=== PATIENT | female | born 1985 | race Caucasian/White ===

== ENCOUNTER 2020-10-30 16:37 | Outpatient (CLI) | payer BC | END 2020-10-30 16:38 | disposition home or self-care (01) | LOC: COV 16:37 | PROVIDERS: ATTEND Family Medicine | DX: U07.1 COVID-19 (principal) ==

== ENCOUNTER 2021-05-09 08:00 | Outpatient (CLI) | payer BC ==
[2021-05-10 12:44] LABS: BILIRUBIN,URINE NEGATIVE (NEGATIVE); GLUCOSE, URINE (UA) NEGATIVE (NEGATIVE); KETONES,URINE (UA) NEGATIVE (NEGATIVE); LEUKOCYTE ESTERASE, URINE NEGATIVE (NEGATIVE); NITRITE,URINE NEGATIVE (NEGATIVE); OCCULT BLOOD,URINE NEGATIVE (NEGATIVE); PH,URINE 6.5 PH (5.0-7.5); PROTEIN,URINE NEGATIVE (NEGATIVE); UROBILINOGEN,URINE 0.2 (NORMAL) E.U./dL (NORMAL)
[2021-05-10 13:05] LABS: CLARITY,URINE CLEAR (CLEAR); RBC,URINE None Seen /HPF (0-5); WBC,URINE 0-3 /HPF (0-5)
[2021-05-10 13:06] LABS: BACTERIA,URINE None Seen /HPF (None Seen); SQUAMOUS EPITHELIAL CELL,UR RARE Squamous (<= Few)
== END 2021-05-09 23:59 | disposition home or self-care (01) ==
LOC: LAB 08:00
PROVIDERS: ATTEND Obstetrics & Gynecology
DX: Z32.01 Encounter for pregnancy test, result positive (principal)
CPT/HCPCS: 81001; 87086

== ENCOUNTER 2021-05-22 14:31 | Outpatient (CLI) | payer BC ==
--- NOTE | 2021-05-22 17:45 | Ultrasound Report ---
PROCEDURE: OB First Trimester w/TV INDICATIONS: POSITIVE TEST OUTSIDE/PRIOR DATING DATA: Last menstrual period (LMP): 04/03/2021. LMP-based estimated date of delivery (SURAJ): 01/08/2022. First dating scan (date and location): [facility] on 05/22/2021. Estimated date of delivery (SURAJ) from first dating scan: 01/04/2022. The below data below was generated using the sonographically generated SURAJ of 01/04/2022 TECHNIQUE: Real-time scanning was performed of the fetus and maternal pelvic organs, with image documentation. Endovaginal scanning was also performed to better visualize the fetus and maternal ovaries. COMPARISON: None FINDINGS: Embryo: Single living intrauterine gestation with estimated sonographic gestational age of approxima tely 7 weeks and 4 days based off crown-rump length measurement of 1.32 cm. Normal yolk sac is visual ized. No perigestational hemorrhage. Heart rate: 152 bpm Measurement variability in dating: +/- 4 weeks by LMP, +/- 7 days by mean sac diameter (use before 6 weeks gestation if crown-rump length not able to be measured), +/- 5 days by crown-rump length (6-12 weeks gestation). Maternal organs: Ovaries demonstrate presence of a left ovarian cyst measuring 4.6 x 3.4 x 3.6 cm. T here is a right corpus luteal cyst measuring 2.0 x 1.6 x 1.9 cm. Incidental note of a uterine fibroid measuring 1.1 x 1.0 x 1.4 cm. IMPRESSION: Single living intrauterine gestation with estimated sonographic gestational age of approximately 7 we eks and 4 days based off crown-rump length measurement. Estimated date of delivery is approximately . Recommend routine second trimester anatomic screening survey. Reviewed by: Fernandez Gaytan MD on 05/22/2021 5:44 PM PDT Approved by: Fernandez Gaytan MD on 05/22/2021 5:44 PM PDT Station ID: [id number]
== END 2021-05-22 14:32 | disposition home or self-care (01) ==
LOC: DI 14:31
PROVIDERS: ATTEND Obstetrics & Gynecology
DX: Z32.01 Encounter for pregnancy test, result positive (principal)

== ENCOUNTER 2021-06-04 12:41 | Outpatient (CLI) | payer BC ==
[2021-06-04 12:58] LABS: BASOPHILS % (AUTO) 0.3 %; EOSINOPHILS # (AUTO) 0.1 10^3/uL (0.0-0.7); HCT - HEMATOCRIT 38.8 % (37.0-47.0); HGB - HEMOGLOBIN 13.1 g/dL (12.0-16.0); LYMPHOCYTES # (AUTO) 2.4 10^3/uL (1.5-3.5); LYMPHOCYTES % (AUTO) 22.4 %; MEAN CORPUSCULAR HEMOGLOBIN 30.3 pg (27.0-31.0); MEAN CORPUSCULAR HGB CONC 33.8 g/dL (32.0-36.0); MEAN CORPUSCULAR VOLUME 89.6 fL (81.0-99.0); MEAN PLATELET VOLUME 9.2 fL (7.9-10.8); MONOCYTES # (AUTO) 0.4 10^3/uL (0.0-1.0); MONOCYTES % (AUTO) 4.2 %; NEUTROPHILS # (AUTO) 7.5 10^3/uL (1.5-6.6); NEUTROPHILS % (AUTO) 71.7 %; PLT - PLATELET COUNT 265 10^3/uL (130-450); RED BLOOD COUNT 4.33 10^6/uL (4.20-5.40); RED CELL DISTRIBUTION WIDTH 12.7 % (12.0-15.0); WHITE BLOOD COUNT 10.5 x10^3/uL (4.8-10.8)
[2021-06-05 09:58] LABS: HEPATITIS B SURFACE ANTIGEN NON-REACTIVE (NON-REACTIVE)
[2021-06-05 10:00] LABS: HEPATITIS C ANTIBODY NON-REACTIVE (NON-REACTIVE)
[2021-06-05 13:31] LABS: HIV AG/AB 4TH GEN NON-REACTIVE (NON-REACTIVE)
== END 2021-06-04 12:42 | disposition home or self-care (01) ==
LOC: LAB 12:41
PROVIDERS: ATTEND Obstetrics & Gynecology
DX: Z36.89 Encounter for other specified antenatal screening (principal)
CPT/HCPCS: 36415; 85025; 86592; 86762; 86787; 86803; 86850; 86900; 86901; 87340; 87389

== ENCOUNTER 2021-08-24 15:21 | Outpatient (CLI) | payer BC ==
--- NOTE | 2021-08-24 21:09 | Ultrasound Report ---
PROCEDURE: OB Detailed Eval INDICATIONS: SUPERVISION OF NORMAL OUTSIDE/PRIOR DATING DATA: Last menstrual period (LMP): 03/06/2021. LMP-based estimated date of delivery (SURAJ): 01/08/2022. First dating scan (date and location): 05/22/2021. Estimated date of delivery (SURAJ) from first dating scan: 01/04/2022. The below data below was generated using the study generated SURAJ of 01/04/2022 TECHNIQUE: Real-time scanning was performed of the fetus, with image documentation and biometric measurements. COMPARISON: 05/22/2021. FINDINGS: General: A single living intrauterine gestation is present. Presentation: Variable Placenta: Placental position is posterior, without previa. Amniotic fluid index: 15.7 cm, normal for gestational age. heart rate: 145 beats per minute. Maternal cervical canal: 4.7 cm long and is closed; normal length is 2.5 cm or more. biometrics: Biparietal diameter: 5.1 cm, 21 weeks, 3 days Head circumference: 19.17 cm, 21 weeks, 3 days Abdominal circumference: 17.19 cm, 22 weeks, 1 day Femur length: 3.65 cm, 21 weeks, 4 days Estimated gestational age from initial scan: 21 weeks, 0 day Composite gestational age from present scan: 21 weeks, 3 days Estimated weight and percentile: 454.6 g, 86.4% Measurement variability in biometric dating: +/- 10 days from 12-20 weeks gestation, +/- 2 weeks from 20-30 weeks gestation, +/- 3 weeks at 30 weeks gestation or later. Anatomic survey: Neuro: Ventricles are normal at less than 10 mm. Cisterna magna is normal at 3-11 mm. Cerebellum i s normal in size and morphology. Nuchal skin fold: Normal at less than 6 mm between 14 and 20 weeks gestational age. Face: Nose and lips, facial profile are normal. Spine: No evidence for spina bifida. Heart: 4-chambered heart is present, with normal ventricular outflow tracts. Diaphragm: Diaphragm is intact. Stomach: Left-sided stomach is present. Kidneys: No hydronephrosis. Normal is less than 5 mm in 2nd trimester, less than 7 mm in 3rd trimester. Cord: 3 vessel cord has orthotopic insertion. Bladder: Normal in size. Extremities: All 4 extremities are visualized. 1.5 x 1.2 x 1.6 cm simple cyst is seen in left ovary. IMPRESSION: 1. Single live intrauterine with fetus in variable presentation. heart rate is 145 bp m. Normal amount of amniotic fluid. Normal growth. Estimated weight is at 86.4%. 2. Normal anatomic survey. Reviewed by: Dionicio Mckeon MD on 08/24/2021 9:08 PM PST Approved by: Dionicio Mckeon MD on 08/24/2021 9:08 PM PST Station ID: [id number]
== END 2021-08-24 15:22 | disposition home or self-care (01) ==
LOC: DI 15:21
PROVIDERS: ATTEND Obstetrics & Gynecology
DX: Z34.92 Encounter for supervision of normal pregnancy, unspecified, second trimester (principal)

== ENCOUNTER 2021-12-14 08:00 | Outpatient (CLI) | payer BC | END 2021-12-14 23:59 | disposition home or self-care (01) | LOC: MERGE 08:00 → LAB 08:00 | PROVIDERS: ATTEND Obstetrics & Gynecology | DX: Z34.90 Encounter for supervision of normal pregnancy, unspecified, unspecified trimester (principal); Z36.85 Encounter for antenatal screening for Streptococcus B | CPT/HCPCS: 87797 ==

== ENCOUNTER 2021-12-21 22:26 | Outpatient (CLI) | payer BC ==
--- NOTE | 2021-12-22 02:21 | Ultrasound Report ---
PROCEDURE: OB F/U or Repeat INDICATIONS: UTERINE SIZE-DATE DISCREPENCY OUTSIDE/PRIOR DATING DATA: Last menstrual period (LMP): 04/03/2021. LMP-based estimated date of delivery (SURAJ): 01/08/2022. First dating scan (date and location): 05/20/2021. Estimated date of delivery (SURAJ) from first dating scan: 01/04/2022. The below data below was generated using the ultrasound SURAJ of 01/04/2022 TECHNIQUE: Real-time scanning was performed of the fetus, with image documentation and biometric measurements. COMPARISON: 08/24/2021, 05/1921. FINDINGS: General: A single living intrauterine gestation is present. Presentation: Vertex Placenta: Placental position is posterior fundal, without previa. Amniotic fluid index: 13.8 cm, within normal limits for gestational age. Largest pocket, 4.3 cm. heart rate: 145 beats per minute. Maternal cervical canal: Not imaged. biometrics: Biparietal diameter: 9.6 cm, 39 weeks 2 days Head circumference: 33.3 cm, 38 weeks 0 days Abdominal circumference: 34.2 cm, 30 weeks 1 day Femur length: 7.7 cm, 39 weeks 1 day Estimated gestational age from initial scan: 38 weeks 0 days Composite gestational age from present scan: 38 weeks 5 days Estimated weight and percentile: 3508 g, 75th percentile Measurement variability in biometric dating: +/- 10 days from 12-20 weeks gestation, +/- 2 weeks from 20-30 weeks gestation, +/- 3 weeks at 30 weeks gestation or more. IMPRESSION: 1. Single living intrauterine demonstrating interval growth with estimated weight at the 75th percentile, decreased from the 86th percentile previously. Reviewed by: Ham Rosa MD on 12/22/2021 2:19 AM PDT Approved by: Ham Rosa MD on 12/22/2021 2:19 AM PDT Station ID: [id number]
== END 2021-12-21 22:27 | disposition home or self-care (01) ==
LOC: DI 22:26 → MERGE 22:45
PROVIDERS: ATTEND Obstetrics & Gynecology
DX: O26.843 Uterine size-date discrepancy, third trimester (principal); Z3A.38 38 weeks gestation of pregnancy

== ENCOUNTER 2022-02-14 13:19 | Outpatient (CLI) | payer BC | END 2022-02-14 13:20 | disposition home or self-care (01) | LOC: LAB 13:19 | PROVIDERS: ATTEND Obstetrics & Gynecology | DX: N93.9 Abnormal uterine and vaginal bleeding, unspecified (principal) | CPT/HCPCS: 36415; 84702 ==

== ENCOUNTER 2022-07-17 11:00 | Outpatient (CLI) | payer BC ==
[2022-07-17 11:15] LABS: BASOPHILS % (AUTO) 0.5 %; EOSINOPHILS # (AUTO) 0.2 10^3/uL (0.0-0.7); EOSINOPHILS % (AUTO) 3.1 %; HCT - HEMATOCRIT 41.6 % (37.0-47.0); HGB - HEMOGLOBIN 13.3 g/dL (12.0-16.0); LYMPHOCYTES # (AUTO) 2.4 10^3/uL (1.5-3.5); LYMPHOCYTES % (AUTO) 37.7 %; MEAN CORPUSCULAR HEMOGLOBIN 27.8 pg (27.0-31.0); MEAN PLATELET VOLUME 9.2 fL (7.9-10.8); MONOCYTES # (AUTO) 0.5 10^3/uL (0.0-1.0); MONOCYTES % (AUTO) 6.9 %; NEUTROPHILS # (AUTO) 3.4 10^3/uL (1.5-6.6); NEUTROPHILS % (AUTO) 51.8 %; PLT - PLATELET COUNT 251 10^3/uL (130-450); RED BLOOD COUNT 4.78 10^6/uL (4.20-5.40); RED CELL DISTRIBUTION WIDTH 13.2 % (12.0-15.0); WHITE BLOOD COUNT 6.5 x10^3/uL (4.8-10.8)
[2022-07-17 11:37] LABS: ALBUMIN 4.3 g/dL (3.2-5.5); ALBUMIN/GLOBULIN RATIO 1.2 (1.0-2.2); ALKALINE PHOSPHATASE 89 IU/L (42-121); ALT ALANINE AMINOTRANSFERASE 18 IU/L (10-60); AST ASPARTATE AMINOTRANSFERASE 16 IU/L (10-42); BILIRUBIN,TOTAL 0.8 mg/dL (0.2-1.0); BUN - BLOOD UREA NITROGEN 11 mg/dL (6-20); CALCIUM 9.6 mg/dL (8.5-10.3); CARBON DIOXIDE - CO2 29 mmol/L (21-32); CHLORIDE 100 mmol/L (101-111); CHOL/HDL RATIO 4.6 (<4.4); CHOLESTEROL 261 mg/dL; CREATININE 0.8 mg/dL (0.4-1.0); GFR - MDRD 82 (>89); GLUCOSE 89 mg/dL (70-100); HDL CHOLESTEROL 57 mg/dL; LDL CHOLESTEROL,CALCULATED 190 mg/dL; LDL/HDL RATIO 3.3 (<4.4); POTASSIUM 4.2 mmol/L (3.5-5.0); SODIUM 137 mmol/L (135-145); TOTAL PROTEIN 7.9 g/dL (6.7-8.2); TRIGLYCERIDES 72 mg/dL; VLDL CHOLESTEROL 14 mg/dL
[2022-07-17 11:46] LABS: THYROID STIMULATING HORMONE 0.37 uIU/mL (0.34-5.60)
[2022-07-17 11:48] LABS: FREE T3 3.64 pg/mL (2.5-3.9)
[2022-07-17 11:49] LABS: FREE T4 (FREE THYROXINE) 0.88 ng/dL (0.58-1.64)
== END 2022-07-17 11:01 | disposition home or self-care (01) ==
LOC: LAB 11:00
PROVIDERS: ATTEND Nurse Practitioner
DX: E04.9 Nontoxic goiter, unspecified (principal); R53.83 Other fatigue; Z13.220 Encounter for screening for lipoid disorders
CPT/HCPCS: 36415; 80053; 80061; 83721; 84439; 84443; 84481; 85025

== ENCOUNTER 2022-07-22 14:45 | Outpatient (CLI) | payer BC ==
--- NOTE | 2022-07-22 17:42 | Ultrasound Report ---
PROCEDURE: Head or Neck Soft Tissue INDICATIONS: FATIGUE TECHNIQUE: Real-time scanning was performed of the thyroid gland, with image documentation. COMPARISON: None FINDINGS: Right: Thyroid lobe measures 5.3 x 2.7 x 2.4 cm, and is homogeneous in echotexture. Left: Thyroid lobe measures 4.9 x 1.5 x 1.2 cm, and is homogenous in echotexture. Isthmus: 3 mm thick. Nodule number: One Location: Right mid Size: 3.1 x 2.1 x 2.5 cm. Composition: Cystic Echogenicity: Anechoic Shape: Wider than tall. Margins: Smooth Echogenic foci: Peripheral calcifications Total points: 1 ACR TI-RADS category: 2 Nodule number: Two Location: Right inferior Size: 0.7 x 0.6 x 0.7 cm. Composition: Spongiform Echogenicity: Hypoechoic Shape: wider than tall. Margins: Smooth Echogenic foci: None Total points: 2 ACR TI-RADS category: 2 Nodule number: Three Location: Left mid Size: 0.9 x 0.5 x 0.9 cm. Composition: Predominantly solid Echogenicity: Isoechoic Shape: wider than tall. Margins: Smooth Echogenic foci: None Total points: 3 ACR TI-RADS category: 3 IMPRESSION: Multiple thyroid nodules. Mildly suspicious left subcentimeter nodule noted. Best practice guidelines suggest no follow-up or FNA required ACR TI-RADS definitions and recommendations: TI-RADS 1 (benign): 0 points. FNA not needed. TI-RADS 2 (not suspicious): 2 points. FNA not needed. TI-RADS 3 (mildly suspicious): 3 points. "FNA if 2.5 cm or larger, follow up if 1.5 cm or larger (at 1, 3, and 5 years). TI-RADS 4 (moderately suspicious): 4-6 points. "FNA if 1.5 cm or larger, follow up if 1 cm or larger (at 1, 2, 3, and 5 years). TI-RADS 5 (highly suspicious): 7 points or more. "FNA if 1 cm or larger, follow up if 0.5 cm or larger (every year for 5 years). Reviewed by: Fantasma Desai MD on 07/22/2022 4:40 PM EITAN Approved by: Fantasma Desai MD on 07/22/2022 4:40 PM AKST Station ID: [id number]
== END 2022-07-22 14:46 | disposition home or self-care (01) ==
LOC: DI 14:45
PROVIDERS: ATTEND Nurse Practitioner
DX: E04.2 Nontoxic multinodular goiter (principal)

== ENCOUNTER 2023-06-10 08:00 | Outpatient (CLI) | payer BC ==
--- NOTE | 2023-06-10 16:23 | XRAY Report ---
PROCEDURE: Chest 2 View X-Ray INDICATIONS: PERSISTANT COUGH TECHNIQUE: 2 views of the chest were acquired. COMPARISON: None. FINDINGS: Surgical changes and devices: None. Lungs and pleura: No pleural effusions or pneumothorax. Lungs are clear. Mediastinum: Mediastinal contours appear normal. Heart size is normal. Bones and chest wall: No suspicious bony lesions. Overlying soft tissues appear unremarkable. IMPRESSION: No acute cardiopulmonary process. Reviewed by: Lucas Murray MD on 06/10/2023 4:22 PM [facility] Approved by: Lucas Murray MD on 06/10/2023 4:22 PM [facility] Station ID: [id number]
== END 2023-06-10 23:59 | disposition home or self-care (01) ==
LOC: DI.S 08:00
PROVIDERS: ATTEND Emergency Medicine
DX: R05.3 Chronic cough (principal)

== ENCOUNTER 2025-03-28 05:39 | Inpatient (IN) ==
[2025-03-28] MEDS ORDERED: OXYTOCIN 10 UNIT/ML VIAL ONE (05:54)
--- OUTSIDE RECORDS SUMMARY | 2025-03-28 06:08 | EXTERNAL MEDICAL SUMMARY RPT | Continuity of Care Document ---
Author Organization [facility] Address [address] [place] [id number] Phone Problems date description facility 2024-12-30 10:00 Supervision of elder ly multigravida, unspecified trimester [facility] 2024-12-30 10:00 Encounter for superv ision of normal , unspecified, first trimester [facility] 2024-12-30 10:00 Encounter for other specified a ntenatal screening [facility] 2025-01-14 10:31 Supervision of elder ly multigravida, unspecified trimester [facility] 2025-01-14 10:31 Encounter for superv ision of normal , unspecified, unspecified trimester [facility] 2025-01-14 10:31 Encounter for superv ision of normal , unspecified, first trimester [facility] 2025-01-14 10:31 Encounter for other specified a ntenatal screening [facility] 2025-01-14 10:47 Supervision of elder ly multigravida, unspecified trimester [facility] 2025-01-14 10:47 Encounter for superv ision of normal , unspecified, unspecified trimester [facility] 2025-01-14 10:47 Encounter for superv ision of normal , unspecified, first trimester [facility] 2025-01-14 10:47 Encounter for other specified a ntenatal screening [facility] 2025-01-15 00:03 Supervision of elder ly multigravida, unspecified trimester [facility] 2025-01-15 00:03 Encounter for superv ision of normal , unspecified, unspecified trimester [facility] 2025-01-15 00:03 Encounter for superv ision of normal , unspecified, first trimester [facility] 2025-01-15 00:03 Encounter for other specified a ntenatal screening [facility] 2025-01-17 06:57 Supervision of elder ly multigravida, unspecified trimester [facility] 2025-01-27 13:12 Encounter for immunization [facility] 2025-01-27 13:14 Encounter for immunization [facility] 2025-01-27 14:39 Encounter for immunization [facility] 2025-02-23 11:49 Supervision of pregn jose with other poor reproductive or obstetric history, third trimester [facility] 2025-02-24 07:28 Supervision of pregn jose with other poor reproductive or obstetric history, third trimester [facility] 2025-02-24 10:20 Supervision of pregn jose with other poor reproductive or obstetric history, third trimester [facility] 2025-03-09 08:43 Noninfective gastroenteritis an d colitis, unspecified [facility] 2025-03-09 08:43 Supervision of pregn jose with other poor reproductive or obstetric history, third trimester [facility] 2025-03-09 08:43 Nausea with vomiting, unspecifi ed [facility] 2025-03-09 08:43 Diarrhea, unspecified [facility] 2025-03-16 09:37 Encounter for screeni ng for Streptococcus B [facility] 2025-03-16 09:38 Encounter for screeni ng for Streptococcus B [facility] 2025-03-16 10:50 Encounter for screeni ng for Streptococcus B [facility] 2025-03-17 00:04 Encounter for screeni ng for Streptococcus B [facility] 2025-03-21 08:48 Supervision of elderly multigra jenifer, third trimester [facility] 2025-03-21 08:48 Encounter for screeni ng for Streptococcus B [facility] 2025-03-25 15:22 Supervision of pregn jose with grand multiparity, third trimester [facility] Results/Labs test date facility value unit notes Result panel 1 MEAN PLATELET VOLUME 2025-01-14 11:35 [facility] 10.0 fl (missing) HGB - HEMOGLOBIN 2025-01-14 11:35 [facility] 11.4 g /dl (missing) GLUCOSE,1H PP 50GM DOSE 2025-01-14 11:35 [facility] 112 mg/dl Social History date description facility
[2025-03-28] MEDS ORDERED: CARBOPROST TROMETHAMINE 250 MCG/ML VIAL IM PRN (06:13)
[2025-03-28] MEDS ORDERED: OXYTOCIN/SODIUM CHLORIDE 500 ML IV PRN (06:13)
[2025-03-28] MEDS ORDERED: SODIUM CHLORIDE FLUSH 0.9% 10 ML SYRINGE IVP PRN (06:13)
[2025-03-28] MEDS ORDERED: TRANEXAMIC ACID IN NACL 1,000 MG/100 ML BAG IV PRN (06:13)
[2025-03-28] MEDS ORDERED: METHYLERGONOVINE 0.2 MG/ML VIAL IM PRN (06:13)
[2025-03-28] MEDS ORDERED: hydrALAZINE INJ 20 MG/ML VIAL IVP PRN (06:13)
[2025-03-28] MEDS ORDERED: LABETALOL 20 MG/4 ML SYRINGE IVP PRN ×3 (06:13)
[2025-03-28] MEDS: OXYTOCIN 10 UNIT/ML VIAL IM PRN (06:15)
[2025-03-28] MEDS ORDERED: ONDANSETRON 4 MG/2 ML VIAL IVP PRN (06:37)
[2025-03-28] MEDS ORDERED: SIMETHICONE CHEW 80 MG TABLET PO PRN (06:37)
[2025-03-28] MEDS ORDERED: CALCIUM CARBONATE CHEW 500 MG TABLET PO PRN (06:37)
--- NOTE | 2025-03-28 06:37 | HISTORY & PHYSICAL EXAMINATION ---
Admit History Smoking Status: Never smoker Other Maternal History Other Maternal History: Patient is a 39-year-old G2, P1 at 38 weeks 0 days gestation presented today with rupture membranes and labor. She is sadie regularly and complete upon arrival and other than preparing for delivery, no other history was obtained. Rupture membranes was within 1 hour of arrival. She has good movement. . Course LMP: 07/05/2024 SURAJ by LMP: 04/11/2025 US:09/13/2024 @ 10+5 (04/06/2025) Final SURAJ: 04/11/2025 c/w LMP AMA: NIPT low risk works for [employer] in [employer]. Hybrid position. maternity leave 03/11. Pre- Weight: 122 lb BMI: 21.7 Blood type: A+ Antibody: negative CBC: H/H/PLT- 12.6/36.6/272 RUB:Immune VZV:Immune HBsAg: Neg HepC: NR RPR/AB-EIA: NR HIV:NR PAP:06/07/2021- NILM HPV- GC/CT: 10/04/24 neg HSV: denies Genetic testing: NIPT Negative AFP:negative Covid: declines Flu: 10/04/24 mls FAS: Placenta:anterior fundal w/o previa Cord:3VC KIRSTIE:12.0 WNL EFW:462g, 78th %ile 50gm OGCT:112 3HR GTT: TDAP: 01/27/2025 Breast Pump: has one 3rd trimester 34.4/11.4/230 3rd trimester RPR NR GBS: 03/16 Negative MOD: Contraception: to discuss Meds/Allgy Home Medications Ambulatory Orders Medication Instructions Recorded Confirmed vits no.126-ferrous fum tab PO QDAY 08/27/24 03/23/25 28 mg iron-folic acid 800 mcg tablet (Classic ) Allergies Allergies Allergy/AdvReac Type Severity Reaction Status Date / Time No Known Drug Allergies Allergy Verified 03/23/25 09:28 PFSH Active Problems All Active Problems (Updated 03/28/25 @ 08:43 by Chase Melchor MD) Rupture of membranes with clear amniotic fluid (Acute) 38 weeks gestation of (Acute) Small for dates infant in prior , currently in third trimester (Acute) Supervision of elderly multigravida (Acute) Medical History Medical History (Updated 03/28/25 @ 08:43 by Chase Melchor MD) No pertinent past medical history Surgical History Surgical History (Updated 10/27/24 @ 20:43 by Elzbieta Brewster RN) No pertinent past surgical history Social History Social History (Updated 03/23/25 @ 09:53 by Chase Melchor MD) Smoking Status: Never smoker Second hand tobacco smoke exposure: No Do you dip or chew tobacco?: No Do you vape?: No Patient requests smoking cessation consult: No Living arrangement: At home Living Condition: With spouse/s.o. and With family Level: Independent Do you feel safe in your home environment?: Yes History of physical, verbal, emotional, or financial abuse?: No ETOH Use: None Substance Use: denies use Are you sexually active?: Yes Occupation - Current: Works for [employer] Are you following a diet prescribed by a doctor: No Are you following a special diet: No POLST Patient has POLST: No Review of Systems Status of ROS: 10 or more systems reviewed and unremarkable except as noted in history and below Physical Other Notes Labor Progress Note/Additional Text: General: Alert, oriented, no acute distress Head: Normal cephalic atraumatic Eyes: PERRLA, extraocular motions intact. Respiratory: Normal rate of respiration. No accessory muscle use, normal respiratory effort. Abdomen: Gravid, nontender, nondistended Extremities: Normal range of motion Neuro: Oriented x3. Normal movements Psych: Appropriate mood and affect. Normal judgment and insight SVE: 05/13/+1 FHT: 125 BPM baseline, moderate variability, accelerations present Plan for Labor Plan For Labor I expect patient to be DC'd or transferred within 96 hours.: Yes Conclusion/Plan Problem List (1) Rupture of membranes with clear amniotic fluid: Plan: Admit to L&D, plan for quick delivery, see delivery note for details. (2) 38 weeks gestation of : Plan: As above
--- NOTE | 2025-03-28 06:37 | DELIVERY NOTE ---
Delivery Note Labor Labor: positive Spontaneous Infant Delivery Method Infant Delivery Method: positive Spontaneous vaginal delivery Presentation Presentation: positive ANDRÉS - left occiput anterior Nuchal Cord Nuchal Cord: positive None Amniotic Fluid Description Amniotic Fluid Description: positive Clear Laceration Laceration: positive Periurethral Murray : positive Placed in direct skin contact with mother Cord Cord: positive 3 vessels Placenta Placenta: positive Intact Estimated Blood Loss Estimated Blood Loss (in cc): 75 Post Delivery Events Post Delivery Events: positive No post delivery events Delivery Comments (Free Text/Narrative) Delivery Comments (Free Text/Narrative): Preoperative Diagnoses 38 weeks gestation Term labor Spontaneous rupture of membranes with clear fluid Postoperative Diagnoses Same Delivery of live constantino Status post spontaneous vaginal delivery Summary Patient is admitted at 38 weeks gestation after rupture membranes at home and regular contractions. She was complete upon arrival and pushing actively. She had a brief use of nitrous oxide, but moved towards delivery quickly. Delivery Summary: Patient was placed in the dorsal lithotomy position. Upon maternal pushing the head was delivered atraumatically followed by the anterior shoulder, posterior shoulder, then the remainder of the 's body. A male was delivered with APGARS of 8 at 1 minute and 9 at 5 minutes. The was placed on its mother's chest . After the cord finished pulsating, the umbilical cord was clamped times two and cut. The placenta delivered intact with three vessel cord. Placenta was not sent to pathology. Patient had no IV access, so IM oxytocin was administered. Uterine massage was performed until uterus was deemed firm. Upon inspection the perineum, she had a small bridge of tissue near her urethra/upper labia that was torn during labor, but no significant bleeding and was not sutured. Uterus again massaged and found to be firm. Needle and sponge counts were correct. Patient was stable and allowed to recover in L&D room. Infant was stable and remained in room with mother. weight pending at this time.
[2025-03-28] MEDS: ACETAMINOPHEN 500 MG TABLET PO SCH (07:15)
[2025-03-28] MEDS: LACTATED RINGERS 1,000 ML IV SCH ×2 (08:57→08:59)
[2025-03-28] MEDS: SODIUM CHLORIDE FLUSH 0.9% 10 ML SYRINGE IVP SCH (09:00)
[2025-03-28] MEDS: IBUPROFEN 600 MG TABLET PO SCH (12:00)
[2025-03-28] MEDS: WITCH HAZEL/GLYCERIN 1 PAD TOP PRN (21:22)
[2025-03-29 01:19] VITALS: TEMP 98.2
--- NOTE | 2025-03-29 07:07 | Discharge Summary ---
Discharge Summary Admit Date: 03/28/25 Discharge Date: 03/29/25 Discharging Provider: Chase Melchor MD Code Status: Attempt Resuscitation DIAGNOSES Admission Diagnoses: Term labor 38 weeks gestation Discharge Diagnoses with Status of Each Condition: Delivery of live constantino Status post spontaneous vaginal delivery HPI History of Present Illness: Subjective Patient reports she is doing well. Lochia appropriate. Denies heavy bleeding. Ambulating. Pelvic and abdominal pain well-controlled. Tolerating oral intake. Diet: Regular. Voiding without difficulty. Passing flatus. Denies BM. Patient is bonding with baby in room Breast feeding going well. Supplementing with formula Denies feeling lightheaded, dizzy or excessively fatigued. Objective General: Alert, oriented, no apparent distress. Cardiovascular: Regular rate. Regular rhythm. Lungs: No increased work of breathing. Abdomen: Uterus firm. Below umbilicus. No guarding or rebound. Extremities: No pain on palpation. No cords palpated. Distal pulses intact. HOSPITAL COURSE Hospital Course: Patient was admitted in term labor at 38 weeks gestation. It was complete upon arrival and pushing spontaneously. Spontaneous vaginal delivery was relatively unremarkable. She had a small skin bridge of tissue from a previous repair that tore during delivery, but was hemostatic. was unremarkable and was discharged on day 1. ALLERGIES Allergies Allergy/AdvReac Type Severity Reaction Status Date / Time No Known Drug Allergies Allergy Verified 03/23/25 09:28 MEDICATIONS Ambulatory Orders Medication Instructions Recorded Confirmed vits no.126-ferrous fum 1 tab PO DAILY 03/28/25 28 mg iron-folic acid 800 mcg tablet (Classic ) PHYSICAL EXAM AT DISCHARGE Vital Signs: Vital Signs x48h Temp Pulse Resp BP Pulse Ox 03/29/25 12:15 36.8 C 60 16 115/60 99 FOLLOW UP Follow Up: Follow-up with [facility] in 1 week. TIME SPENT Time Spent in Discharge (Minutes): 20 Discharge Plan Discharge Patient Disposition: Home, Self Care Medically Cleared Date:: 03/29/25 Prescriptions: Continued Classic 28 mg iron- 800 mcg tablet 1 tab PO DAILY Activity Restrictions: No Restrictions Diet: Regular Print Language: Kyrgyz Patient Instructions: After a Vaginal , Depression Follow-up Care: Chase Melchor MD [Provider Admit Priv/Credential, Obstetrics/Gynecology] - 04/20/25 2:30 pm Vitals documented within 30 minutes of discharge?: Yes (36.8, HR 60, RR 16, O2 sat 99, B/P 115/60)
[2025-03-29 12:46] VITALS: BP 115/60; O2SAT 99
--- NOTE | 2025-03-29 13:17 | Labor Flowsheet ---
Labor Flowsheet Datetime Report Generated by CPN: 03/29/2025 13:16 Datetime: 03/29/2025 07:35 VITAL SIGNS NBP Sys/Mellissa/Mean (mmHg): 127 : 82 : 90 Pulse: 85 Datetime: 03/28/2025 06:15 Stage of : Recovery Datetime: 03/28/2025 06:05 SpO2 (%): 98 ASSESSMENT A FHR Baseline Rate : 120 Decelerations: Variable Datetime: 03/28/2025 06:00 Accelerations: 15X15 Datetime: 03/28/2025 05:58 Membranes Ruptured Date/Time: 03/28/2025 04:15 Membranes Rupture Method: Spontaneous Amniotic Fluid Color: Clear Amniotic Fluid Amount: Moderate Amniotic Fluid Odor: Normal Datetime: 03/28/2025 05:56 Provider Reviewed Strip: Yes COMMUNICATION Communication: Provider at Bedside Provider Notified (Name): Dr Ruiz Notification Reason: Status Update; Labor Status; Membrane Status Datetime: 03/28/2025 05:51 UTERINE ACTIVITY Monitor Mode: Palpation Frequency (min): 2-3 Quality: Strong Duration (sec): 60 Pattern: Normal: <= 5 Contractions in 10 Minutes Resting Tone (Palpate): Relaxed Variability: Moderate 6-25 bpm Category: Category I PAIN Pain Location: Abdomen Pain Coping: Breathing Through Contractions VAGINAL EXAM Dilatation (cm): 10.0 Station: 1 Exam by: MK Vaginal Bleeding: None Cervix, Position: Anterior PATIENT CARE Comfort Measures: Breathing/Relaxation; Coaching Datetime: 03/28/2025 05:47 Effacement (%): 100 Vaginal Exam Comments: SROM 0415 clear per pt
== END 2025-03-29 12:30 | disposition home or self-care (01) | DRG 807 ==
LOC: WFO 05:39 → FBP 05:41
PROVIDERS: ADMIT Obstetrics & Gynecology; ATTEND Obstetrics & Gynecology